=== PATIENT | male | born 1970 | race Caucasian/White ===

== ENCOUNTER 2017-10-24 14:14 | Emergency (ER) | payer MEDICAID, OTHER ==
[2017-10-24 14:19] VITALS: BP 194/118; PULSE 62; RESP 14; TEMP 98.4; O2SAT 97
--- NOTE | 2017-10-24 15:18 | RADRPT ---
EXAM DATE/TIME: 10/24/2017 15:05 [place] COMPARISON: No previous studies available for comparison. INDICATIONS : Patient fell 10 days ago and hit head, headache RADIATION DOSE: 45.25 CTDIvol (mGy) MEDICAL HISTORY : None SURGICAL HISTORY : None. ENCOUNTER: Initial ACUITY: 2 weeks PAIN SCALE: 5/10 LOCATION: cranial TECHNIQUE: Multiple contiguous axial images were obtained of the head. Using automated exposure control and adj ustment of the mA and/or kV according to patient size, radiation dose was kept as low as reasonably a chievable to obtain optimal diagnostic quality images. DICOM format image data is available electro nically for review and comparison. FINDINGS: CEREBRUM: The ventricles are normal for age. No evidence of midline shift, mass lesion, hemorrhage or acute in farction. No extra-axial fluid collections are seen. POSTERIOR FOSSA: The cerebellum and brainstem are intact. The 4th ventricle is midline. The cerebellopontine angle i s unremarkable. EXTRACRANIAL: The visualized portion of the orbits is intact. There are air-fluid levels in both maxillary sinuses. There is mucosal thickening in the ethmoidal air cells. SKULL: The calvaria is intact. No evidence of skull fracture. CONCLUSION: 1. No acute hemorrhage or fracture. 2. Air-fluid levels in both maxillary sinuses. Bari Strange MD on October 24, 2017 at 15:15 Board Certified Radiologist. This report was verified electronically.
--- NOTE | 2017-10-24 19:08 | PD ---
HPI Chief Complaint: Headache Time Seen by Provider: 18:53 Travel History International Travel<30 days: No Contact w/Intl Traveler<30days: No Traveled to known affect area: No History of Present Illness HPI 47yo M with PMH of HTN presents to the ED with c/o headache for 10 days. States he fell 10 days ago and was evaluated at ED in [place] and had negative CT brain. However, said he still has a constant throbbing headache that is generalized. Denies any visual changes, focal weakness or numbness, chest pain, sob, vomiting, abdominal pain. Pt has some nausea as well. Said he usually does not get headaches. PFSH Past Medical History Hypertension: Yes Past Surgical History Other Surgery: Yes (knee replacements ) Social History Alcohol Use: Yes (occ) Tobacco Use: No Substance Use: No Allergies-Medications (Allergen,Severity, Reaction): Coded Allergies: No Known Allergies (Unverified , 10/24/17) Reported Meds & Prescriptions Reported Meds & Active Scripts Active Reported Vicodin Hp (Hydrocodone-Acetaminophen) 10-300 Tab 1 Tab PO Q6H PRN Atenolol 100 Mg Tab 100 Mg PO BID Review of Systems Except as stated in HPI: all other systems reviewed are Neg Physical Exam Narrative GENERAL: 47yo M not in distress. SKIN: Focused skin assessment warm/dry. HEAD: Atraumatic. Normocephalic. EYES: Pupils equal and round at 3mm bilaterally. EOMI. ENT: No nasal bleeding or discharge. Mucous membranes pink and moist. Mild ttp right maxilla. NECK: Trachea midline. No JVD. CARDIOVASCULAR: Regular rate and rhythm. No murmur appreciated. RESPIRATORY: No accessory muscle use. Clear to auscultation. Breath sounds equal bilaterally. GASTROINTESTINAL: Abdomen soft, non-tender, nondistended. MUSCULOSKELETAL: No obvious deformities. No clubbing. No cyanosis. No edema. NEUROLOGICAL: Awake and alert. No obvious cranial nerve deficits. Motor grossly within normal limits. Normal speech. PSYCHIATRIC: Appropriate mood and affect; insight and judgment normal. Data Data Last Documented VS Vital Signs Date Time Temp Pulse Resp B/P (MAP) Pulse Ox O2 Delivery O2 Flow Rate FiO2 10/24/17 20:40 10/24/17 19:46 53 18 97 Room Air 10/24/17 14:[address] Brain W/O Iv Contrast(Rout) (10/24/17 ) Ketorolac Inj (Toradol Inj) (10/24/17 19:15) Prochlorperazine Inj (Compazine Inj) (10/24/17 19:15) Ed Discharge Order (10/24/17 20:46) [facility] Medical Decision Making Medical Screen Exam Complete: Yes Emergency Medical Condition: Yes Differential Diagnosis Sinus headache vs. migraine headache Narrative Course 47yo M with headache for [address] brain was ordered prior to my evaluation and showed no acute hemorrhage or fracture. Air-fluid levels in both maxillary sinuses. No focal neurologic deficits. I ordered toradol and compazine. The nurse informed me that pt felt better and wants to go home and he took his IV out. I went to reevaluate pt but pt is already not in the room. Pt left prior to my reevaluation. Diagnosis Primary Impression: Headache Qualified Codes: R51 - Headache Patient Instructions: General Instructions Departure Forms: Tests/Procedures Additional Instructions: Patient left before reevaluation. Med/Other Pt SpecificInfo: No Change to Meds Disposition: 07 AGAINST MEDICAL ADVICE Condition: Stable Rubia Cisse DO Oct 24, 2017 19:08
[2017-10-24] MEDS ORDERED: PROCHLORPERAZINE INJ 10 MG/2 ML VIAL IV PUSH ONE (19:15)
[2017-10-24] MEDS ORDERED: KETOROLAC TROMETHAMINE 30 MG/ML (IVP) VIAL IV PUSH ONE (19:15)
[2017-10-24] MEDS ORDERED: ATEN100T PO (19:45)
[2017-10-24] MEDS ORDERED: HYDR-3115 PO (19:45)
[2017-10-24 19:46] VITALS: BP 167/97; PULSE 53; RESP 18; O2SAT 97
== END 2017-10-24 20:40 | disposition left against medical advice (07) ==
LOC: NEPD 14:14
DX: R51 Headache (principal); I10 Essential (primary) hypertension
CPT/HCPCS: 70450; 96374; 96375; 99285; J0780; J1885